=== PATIENT | male | born 1970 | race Two or more races ===

== ENCOUNTER 2019-01-02 19:29 | Inpatient (IN) | payer OTHER ==
[~2019-01-02] VITALS: Ht 177.8 cm; Wt 113.4 kg
[2019-01-02] MEDS ORDERED: CATAPRES0.2 MG (19:39)
[2019-01-02] MEDS ORDERED: ISOSORBIDE MONONITRATE 60 MG (19:40)
[2019-01-02] MEDS ORDERED: TOPROL XL100 M1 (19:41)
[2019-01-02] MEDS ORDERED: LOSARTAN-HCTZ1 EAC1 (19:41)
[2019-01-02] MEDS ORDERED: FORTAMET1000 MG (19:42)
[2019-01-02] MEDS ORDERED: NORVASC10 MG (19:42)
[2019-01-02] MEDS ORDERED: [UNRECOGNIZED DRUG - OTHER] (19:43)
[2019-01-02] MEDS ORDERED: PLAVIX75 MG (19:43)
[2019-01-07] MEDS ORDERED: INTEGRA PLUS C1 EACH PO (14:00)
[2019-01-07] MEDS ORDERED: CLOPIDOGREL BIS75 MG PO (14:00)
[2019-01-07] MEDS ORDERED: AMLODIPINE BESY10 MG PO (14:00)
[2019-01-07] MEDS ORDERED: ISOSORBIDE MONO60 MG PO (14:01)
[2019-01-07] MEDS ORDERED: TOPROL XL50 M1 PO (14:01)
[2019-01-07] MEDS ORDERED: CLONIDINE HCL0.2 MG PO (14:01)
[2019-01-07] MEDS ORDERED: VITAMIN B-121000 MCG PO (14:02)
[2019-01-07] MEDS ORDERED: FOLIC ACID1 MG PO (14:02)
[2019-01-07] MEDS ORDERED: LASIX20 MG PO (14:03)
== END 2019-01-07 15:00 | disposition home or self-care (01) | DRG 682 ==
LOC: ER 19:29 → MEDI 23:44 → MEDJ 01-04 16:59
PROVIDERS: ADMIT Internal Medicine
PROC: 4A12X4Z Monitoring of Cardiac Electrical Activity, External Approach (ICD-10-PCS; principal; 2019-01-02)
PROC: BT43ZZZ Ultrasonography of Bilateral Kidneys (ICD-10-PCS; 2019-01-02)
PROC: 3E0F7GC Introduction of Other Therapeutic Substance into Respiratory Tract, Via Natural or Artificial Opening (ICD-10-PCS; 2019-01-02)
PROC: 4A033R1 Measurement of Arterial Saturation, Peripheral, Percutaneous Approach (ICD-10-PCS; 2019-01-03)
DX: I13.11 Hypertensive heart and chronic kidney disease without heart failure, with stage 5 chronic kidney disease, or end stage renal disease (principal); N18.6 End stage renal disease; N17.9 Acute kidney failure, unspecified; E72.11 Homocystinuria; N17.8 Other acute kidney failure; E66.2 Morbid (severe) obesity with alveolar hypoventilation; I25.10 Atherosclerotic heart disease of native coronary artery without angina pectoris; E11.65 Type 2 diabetes mellitus with hyperglycemia; D50.8 Other iron deficiency anemias; G47.33 Obstructive sleep apnea (adult) (pediatric)